=== PATIENT | female | born 1990 | race Caucasian/White ===

== ENCOUNTER 2017-03-30 07:36 | Emergency (ER) | payer OTHER | END 2017-03-30 09:04 | disposition home or self-care (01) | LOC: FER 07:36 | DX: J06.9 Acute upper respiratory infection, unspecified (principal); F17.200 Nicotine dependence, unspecified, uncomplicated | CPT/HCPCS: 87450; 99284 ==

== ENCOUNTER 2021-09-29 22:02 | Emergency (ER) | payer OTHER ==
[~2021-09-29 22:02] MED LIST: AMOXICILLIN500 MG PO; BACTRIM DS TAB1 EACH PO; DICLOFENAC SODI75 MG PO; IBUPROFEN800 MG PO; TESSALON PERLE100 M1 PO; VENTOLIN HFA IN18 GM INH; ZPAK PO
[2021-09-30 00:24] LABS: BILIRUBIN NEGATIVE (NEGATIVE); BLOOD 1+ Ery/uL (NEGATIVE); CLARITY TURBID (CLEAR); COLOR YELLOW (YELLOW); GLUCOSE (U) NORMAL (NORMAL); LEUKOCYTES 1+ Leu/uL (NEGATIVE); NITRITE NEGATIVE (NEGATIVE); PROTEIN NEGATIVE (NEGATIVE); SPECIFIC GRAVITY >=1.030 (1.001-1.030); UROBILINOGEN 0.2 mg/dL (0.2-1.0)
[2021-09-30 00:43] LABS: BACTERIA 4+
[2021-09-30 00:47] LABS: BASOPHIL 0.5 % (0-2); EOSINOPHIL 4.4 % (0-5); HCT 40.7 % (37.0-47.0); HGB 13.5 g/dl (12.5-16.0); LYMPHOCYTE 21.3 % (15-48); MCH 30.5 pg (25.0-31.0); MCHC 33.2 g/dL (32.0-36.0); MCV 91.9 fL (78.0-100.0); MONOCYTE 6.4 % (0-12); MPV 9.7 fL (6.0-9.5); NRBC 0; PLT 326 K/uL (150-400); RBC 4.43 M/uL (4.20-5.40); RDW 13.6 % (11.5-14.0)
[2021-09-30 00:58] LABS: ALBUMIN 3.4 g/dL (3.4-5.0); BILIRUBIN - TOTAL 0.6 mg/dL (0.2-1.0); BUN/CREAT RATIO (CALC) 17.6 RATIO; CREATININE 0.51 mg/dL (0.51-0.95); GLOBULIN (CALCULATION) 3.8 g/dL; POTASSIUM 3.5 mmol/L (3.5-5.1); TOTAL PROTEIN 7.2 g/dL (6.4-8.2)
[2021-09-30] MEDS ORDERED: PRENATAL FORMU1 EACH PO (02:58)
[2021-09-30] MEDS ORDERED: KEFLEX250 MG PO (03:03)
[2021-09-30 03:36] LABS: HIV 1/2 AB NON-REACITVE (NON-REACT); HIV-1 P24 NON-REACITVE (NON-REACT)
[2021-10-01 22:08] LABS: CHLAMYDIA TRACHOMATIS, NAA Negative (Negative); NEISSERIA GONORRHOEAE, NAA Negative (Negative)
== END 2021-09-30 03:15 | disposition home or self-care (01) ==
LOC: FER 22:02
PROVIDERS: Emergency Medicine
DX: O23.41 Unspecified infection of urinary tract in pregnancy, first trimester (principal); O99.330 Smoking (tobacco) complicating pregnancy, unspecified trimester; F17.200 Nicotine dependence, unspecified, uncomplicated; Z3A.10 10 weeks gestation of pregnancy
CPT/HCPCS: 36415; 76817; 80053; 81001; 83690; 84702; 85025; 86803; 86850; 86900; 86901; 87076; 87077; 87088; 87186; 87210; 87491; 87591

== ENCOUNTER 2022-04-14 00:18 | Inpatient (IN) | payer OTHER ==
[~2022-04-14] VITALS: Ht 167.6 cm; Wt 75.3 kg
[~2022-04-14 00:18] MED LIST changes: +KEFLEX250 MG PO; +PRENATAL FORMU1 EACH PO
[2022-04-14 00:48] LABS: BILIRUBIN NEGATIVE (NEGATIVE); BLOOD NEGATIVE Ery/uL (NEGATIVE); CLARITY CLEAR (CLEAR); COLOR YELLOW (YELLOW); GLUCOSE (U) NORMAL (NORMAL); LEUKOCYTES TRACE Leu/uL (NEGATIVE); NITRITE NEGATIVE (NEGATIVE); PROTEIN NEGATIVE (NEGATIVE); SPECIFIC GRAVITY 1.025 (1.001-1.030); UROBILINOGEN 0.2 mg/dL (0.2-1.0)
[2022-04-14 00:50] LABS: AMPHETAMINES POSITIVE (NEGATIVE); BARBITURATES NEGATIVE (NEGATIVE); ECSTASY (MDMA) POSITIVE (NEGATIVE); MARIJUANA (THC) NEGATIVE (NEGATIVE); METHADONE NEGATIVE (NEGATIVE); OPIATES NEGATIVE (NEGATIVE); OXYCODONE NEGATIVE (NEGATIVE)
[2022-04-14 07:01] LABS: CREATININE 0.46 mg/dL (0.51-0.95); POTASSIUM 3.7 mmol/L (3.5-5.1)
[2022-04-14 07:02] LABS: ALBUMIN 2.2 g/dL (3.4-5.0); BILIRUBIN - TOTAL 0.4 mg/dL (0.2-1.0); TOTAL PROTEIN 6.2 g/dL (6.4-8.2)
[2022-04-14 08:06] LABS: HCT 32.8 % (37.0-47.0); HGB 10.4 g/dl (12.5-16.0); MCH 27.5 pg (25.0-31.0); MCHC 31.7 g/dL (32.0-36.0); MCV 86.8 fL (78.0-100.0); MPV 9.8 fL (6.0-9.5); RBC 3.78 M/uL (4.20-5.40); RDW 14.4 % (11.5-14.0); WBC 10.1 K/uL (4.0-10.5)
[2022-04-15 08:36] LABS: HCT 36.1 % (37.0-47.0); HGB 10.9 g/dL (12.5-16.0)
[2022-04-16] MEDS ORDERED: ACETAMINOPHEN325 MG PO (07:14)
[2022-04-16] MEDS ORDERED: IBUPROFEN800 MG PO (07:14)
[2022-04-16] MEDS ORDERED: COLACE100 MG PO (07:14)
== END 2022-04-16 12:23 | disposition home or self-care (01) | DRG 806 ==
LOC: FOB 00:18 → FOD 00:18 → FOB 09:16
PROVIDERS: ADMIT Obstetrics & Gynecology
PROC: 10E0XZZ Delivery of Products of Conception, External Approach (ICD-10-PCS; principal; 2022-04-14)
PROC: 0KQM0ZZ Repair Perineum Muscle, Open Approach (ICD-10-PCS; 2022-04-14)
PROC: 0UQMXZZ Repair Vulva, External Approach (ICD-10-PCS; 2022-04-14)
DX: O99.324 Drug use complicating childbirth (principal); D62 Acute posthemorrhagic anemia; Z37.0 Single live birth; Z3A.39 39 weeks gestation of pregnancy; Z20.822 Contact with and (suspected) exposure to COVID-19; F15.90 Other stimulant use, unspecified, uncomplicated; O99.334 Smoking (tobacco) complicating childbirth; F17.200 Nicotine dependence, unspecified, uncomplicated; O99.02 Anemia complicating childbirth; D50.9 Iron deficiency anemia, unspecified; O70.1 Second degree perineal laceration during delivery; O71.82 Other specified trauma to perineum and vulva; Z28.310 Unvaccinated for COVID-19; Z79.899 Other long term (current) drug therapy; Z87.440 Personal history of urinary (tract) infections; Z86.19 Personal history of other infectious and parasitic diseases
CPT/HCPCS: 36415; 80053; 80305; 81003; 85014; 85018; 86850; 86900; 86901; 87070; J2001; J2540; J7120; U0002